=== PATIENT | female | born 1940 | race Caucasian/White ===

== ENCOUNTER 2017-08-20 16:23 | Inpatient (IN) | payer OTHER ==
[~2017-08-20] VITALS: Ht 160 cm; Wt 83.9 kg
--- NOTE | ~2017-08-20 | HC ---
[facility] [address] CONSULTATION Name: YULI GAVIRIA Room #: 403-P ADM IN M.R.#: [id number] Admission: 08/20/17 Attend Phys: Moody Sanchez MD Discharge: Date of : 36 Report #: [id number] THIS REPORT FOR: //name// CC: Deangelo Chavisanthony Molinaaker DATE OF SERVICE: 08/21/2017 CHIEF COMPLAINT: Right femoral neck fracture. HISTORY OF PRESENT ILLNESS: This very active and fully independent 77-year-old female fell about 1 week ago and started with right hip pain. Subsequently, she was able to ambulate and felt she was making progress. The hip pain became more severe and she presented for evaluation. X-rays then revealed evidence of a displaced unstable femoral neck fracture. She has no other apparent injuries and is admitted for definitive care. At the time of my evaluation, she is fully alert and oriented and very pleasant. She notes she is quite active. She recalls the fall 1 week ago and felt that the hip pain would get better with time. Symptoms advanced despite protection and she understands. Now, there is evidence of a displaced femoral neck fracture. She denies any other significant medical problems. Objectively, she does appear healthy and well and somewhat younger than her stated age. She demonstrates good movement of the neck and back without discomfort. She has good movement of both upper extremities without discomfort. The left lower extremity also reveals good range of motion at the hip, knee and ankle without discomfort. The right lower extremity is shortened and slightly rotated consistent with an unstable proximal femur fracture. She does have discomfort with any attempted movement of the right hip. X-rays of the pelvis and right hip reveal a displaced, unstable femoral neck fracture. IMPRESSION: Right femoral neck fracture with displacement. We have discussed treatment options. She prefers to proceed with a right hemiarthroplasty hoping for rapid return to function and full weightbearing. We will plan to proceed today with surgical repair. <ELECTRONICALLY SIGNED> By: Raza Victor MD 08/22/17 1054 [id number] Raza Victor MD /nt
--- NOTE | ~2017-08-20 | O ---
[facility] [place] [address] [address] OPERATIVE REPORT Name: YULI GAVIRIA Room #: 403-P ADM IN M.R.#: [id number] Admission: 08/20/17 Attend Phys: Moody Sanchez MD Discharge: Date of : 36 Report #: [id number] THIS REPORT FOR: //name// CC: Deangelo Chavisanthony Molinaaker DATE OF SERVICE: 08/21/2017 PREOPERATIVE DIAGNOSIS: Fracture, right femoral neck. POSTOPERATIVE DIAGNOSIS: Fracture, right femoral neck. PROCEDURE: Right proximal femoral hemiarthroplasty. SURGEON: Raza Victor MD INDICATIONS: This 77-year-old active, independent female fell injuring the right hip. X-rays confirmed a displaced unstable femoral neck fracture. We discussed treatment options and elected to proceed with a cemented hemiarthroplasty. DESCRIPTION OF PROCEDURE: The patient was taken to the operating room where she was placed under general anesthesia. Prophylactic intravenous antibiotics were administered. She was turned to the left lateral decubitus position. The right hip, thigh and leg were meticulously prepped and draped. A slightly curving posterolateral skin incision was made centered over the greater trochanter. This was carried through adipose tissue and fascia exposing the posterior aspect of the hip joint. The piriformis and short external rotators were taken down and tagged with several #1 Tevdek sutures. The femoral head was removed and measured at 46 mm in diameter. The neck was trimmed down to an appropriate level. The acetabulum was inspected and felt to be in good shape without significant wear and I felt a unipolar hemiarthroplasty would be quite appropriate for this patient given her age. The canal was then opened with reamers and broaches. The [employer]hew hip system was utilized. The Conquest size 10 femoral component fit nicely. A trial reduction was performed and the hip was nicely reduced and stable when using a 46-mm head and a +0 neck length. The trial components were removed. A cement restrictor was placed in the canal. The canal was irrigated and dried. Methyl methacrylate cement was mixed and injected into the femoral canal. The Wise [employer] Nephew size 10 Conquest femoral component was then inserted, positioning this in about 20 degrees of anteversion. Excess cement was removed from around its margin. The acetabulum was inspected and found to be clean and clear of any debris. The cobalt chrome size 46 head was then applied using a +0 neck length sleeve. This was impacted onto the Paulino taper and seated nicely. The hip was then reduced. Range of motion, alignment, stability and leg length were assessed and felt to [address] [address] OPERATIVE REPORT Name: YULI GAVIRIA SHERI Room #: 403-P [facility] IN M.R.#: [id number] Admission: 08/20/17 Attend Phys: Moody Sanchez MD Discharge: Date of : 36 Report #: [id number] be satisfactory. Gentle pressure was applied as the cement hardened. The piriformis and short external rotators were repaired back to greater trochanter using the #1 Tevdek sutures passed through drill holes in the bone. This resulted in excellent hip stability. A single Hemovac was left in the wound exiting through a separate stab incision. The fascia was then closed with multiple #1 Vicryl sutures. The adipose and subcutaneous tissues were closed with 0 Monocryl. The skin was closed with skin julia. A sterile dressing was applied. The patient was then awakened and returned to recovery room in good condition. <ELECTRONICALLY SIGNED> By: Raza Victor MD 08/22/17 1054 [id number] Raza Victor MD /nt
[~2017-08-20 16:23] MED LIST: ADULT LOW DOSE81 MG PO; BENAZEPRIL HCL40 MG PO; COUMADIN 2 MG TA2 M1 PO; FISHOIL PO; MOBIC PO; NORCO 10-325 T1 EACH PO; OSTEO-BIFLEX PO; PEPCID40 MG PO; PREFERA OB TAB1 EACH PO; TRAMADOL 50 MG50 MG PO; ZOCOR PO
[2017-08-20 18:50] VITALS: BP 164/74
[2017-08-20 19:15] LABS: HEMATOCRIT 41.2 % (37.0-47.0); HEMOGLOBIN 13.6 gm/dL (12.0-15.0); MCH 28.8 pg (26.0-34.0); MCV 87.2 fL (80.0-100.0); RBC 4.72 mil/uL (4.20-5.00); RDW 14.1 % (10.5-14.5); WBC 8.1 thou/uL (4.0-11.0)
[2017-08-20 19:25] LABS: CALCIUM 9.9 mg/dL (8.5-10.1); POTASSIUM 3.5 mmol/L (3.5-5.1)
[2017-08-20 19:30] LABS: ALBUMIN 3.8 g/dL (3.4-5.0); TOTAL BILIRUBIN 0.5 mg/dL (<0.1-1.0); TOTAL PROTEIN 8.2 g/dL (6.4-8.2)
[2017-08-21] VITALS (9 sets, daily range): BP systolic 123–161; BP diastolic 54–83
[2017-08-21 05:50] LABS: HEMATOCRIT 36.5 % (37.0-47.0); HEMOGLOBIN 12.1 gm/dL (12.0-15.0); MCH 28.6 pg (26.0-34.0); MCHC 33.2 g/dL (28.0-37.0); MCV 86.1 fL (80.0-100.0); RBC 4.23 mil/uL (4.20-5.00); RDW 14.4 % (10.5-14.5); WBC 6.8 thou/uL (4.0-11.0)
[2017-08-21 14:34] LABS: HEMATOCRIT 36.3 % (37.0-47.0); HEMOGLOBIN 11.9 gm/dL (12.0-15.0); MCH 28.7 pg (26.0-34.0); MCHC 32.9 g/dL (28.0-37.0); MCV 87.2 fL (80.0-100.0); RBC 4.16 mil/uL (4.20-5.00); RDW 14.2 % (10.5-14.5); WBC 12.1 thou/uL (4.0-11.0)
[2017-08-21 18:02] LABS: URINE BILIRUBIN NEGATIVE (Negative); URINE BLOOD TRACE (Negative); URINE CLARITY CLEAR; URINE COLOR YELLOW; URINE GLUCOSE-RANDOM* NEGATIVE (Negative); URINE KETONES NEGATIVE (Negative); URINE PROTEIN (DIPSTICK) NEGATIVE (Negative); URINE SPECIFIC GRAVITY 1.015 (1.005-1.035); URINE UROBILINOGEN 0.2 E.U./dl (0.2-1.0)
[2017-08-21 18:03] LABS: URINE LEUKOCYTES-REFLEX 2+ (Negative); URINE NITRITE-REFLEX POSITIVE (Negative)
[2017-08-21 18:10] LABS: CASTS None Seen /LPF (None Seen); SQUAMOUS >10 Many /LPF (0-3); URINE WBC-REFLEX 6-15 Few /HPF (0-5)
[2017-08-21 18:11] LABS: CRYSTALS None Seen /LPF (None Seen); URINE RBC 0-2 Rare /HPF (0-2); WBC CLUMPS Few (None Seen)
[2017-08-22 03:54] VITALS: BP 145/58
[2017-08-22 05:03] LABS: HEMATOCRIT 32.8 % (37.0-47.0); MCHC 33.4 g/dL (28.0-37.0); MCV 86.7 fL (80.0-100.0); RBC 3.79 mil/uL (4.20-5.00); RDW 14.1 % (10.5-14.5); WBC 10.3 thou/uL (4.0-11.0)
[2017-08-22 05:15] LABS: CALCIUM 8.8 mg/dL (8.5-10.1); CREATININE 0.9 mg/dL (0.6-1.0); POTASSIUM 3.8 mmol/L (3.5-5.1)
[2017-08-22 08:15] VITALS: BP 143/75
[2017-08-22 15:30] VITALS: BP 115/56
[2017-08-22 20:00] VITALS: BP 123/78
[2017-08-23 04:00] VITALS: BP 145/77
[2017-08-23 05:26] LABS: HEMATOCRIT 30.4 % (37.0-47.0); HEMOGLOBIN 10.3 gm/dL (12.0-15.0); MCH 29.3 pg (26.0-34.0); MCHC 33.9 g/dL (28.0-37.0); MCV 86.3 fL (80.0-100.0); RBC 3.52 mil/uL (4.20-5.00); WBC 7.8 thou/uL (4.0-11.0)
[2017-08-23 08:43] VITALS: BP 137/69
[2017-08-23] MEDS ORDERED: HYDROCODONE-AP1 EAC6 PO (09:01)
[2017-08-23 18:38] VITALS: BP 138/70
[2017-08-23 19:34] VITALS: BP 120/73
[2017-08-24 07:34] VITALS: BP 129/64
[2017-08-24 10:00] VITALS: BP 129/64
== END 2017-08-24 14:00 | disposition home health service (06) | DRG 470 ==
LOC: RAD 16:23 → 4N 17:48 → ENTRNSPT 08-24 13:51 → EDTRNSPTSTS 08-24 13:56 → 4N 08-24 14:00
PROVIDERS: Hospitalist; Orthopaedic Surgery
PROC: 0SRR019 Replacement of Right Hip Joint, Femoral Surface with Metal Synthetic Substitute, Cemented, Open Approach (ICD-10-PCS; principal; 2017-08-21)
DX: S72.031A Displaced midcervical fracture of right femur, initial encounter for closed fracture (principal); W18.39XA Other fall on same level, initial encounter; M19.90 Unspecified osteoarthritis, unspecified site; K21.9 Gastro-esophageal reflux disease without esophagitis; I10 Essential (primary) hypertension; E78.5 Hyperlipidemia, unspecified; E66.9 Obesity, unspecified; Y93.89 Activity, other specified; Y92.89 Other specified places as the place of occurrence of the external cause; Y99.8 Other external cause status; Z79.82 Long term (current) use of aspirin; Z68.32 Body mass index [BMI] 32.0-32.9, adult; Z79.899 Other long term (current) drug therapy; Z91.040 Latex allergy status; Z88.5 Allergy status to narcotic agent; Z88.2 Allergy status to sulfonamides; Z91.048 Other nonmedicinal substance allergy status
CPT/HCPCS: 10790; 50010; 50101; 50382; 50414; 51057; 51130; 51225; 51412; 53000; 56521; 56525; 56527; 62110; 62900; 70005